=== PATIENT | male | born 1960 | race Caucasian/White ===

== ENCOUNTER 2018-03-23 11:55 | Day surgery (SDC) | payer OTHER, SELFPAY ==
--- NOTE | 2018-03-23 | PATH_ITS ---
[facility] Accession Number: [id number] . 01 Material submitted: . PART A: CECUM BIOPSY OF POLYP, 5MM PART B: 60CM SPLENIC FLEXURE POLYP, 1CM PART C: 30CM, SIGMOID POLYP, 2CM . 02 Diagnosis: A. Cecal Polyp, 5 mm, Biopsy: Tubular adenoma. . B. Splenic Flexure Polyp at 60 cm, 1 cm: Tubular adenoma. . C. Sigmoid Colon Polyp at 30 cm, 2 cm: Tubulovillous adenoma. Negative for high-grade dysplasia or malignancy. The polypectomy appears complete. MRV/03/26/2018 . 02 Electronically signed: . Aaron Webster MD, PhD, Pathologist NPI- [id number] . 01 Gross description: . Received three formalin-filled containers, each labeled with the patient's name: . A. In a container labeled cecum BX of polyp, the specimen consists of a 0.5 cm portion of tissue, entirely submitted in cassette A. B. In a container labeled 60 cm splenic flexure polyp, the specimen consists of a 0.4 cm portion of tissue, entirely submitted in cassette B. C. In a container labeled 30 cm sigmoid 3 cm polyp, designated 30 cm sigmoid polyp 2 cm, the specimen consists of a 1.2 x 1.2 x 2.0 cm portion of tissue, which is sectioned into four pieces and entirely submitted in cassettes C1 and C2. ([id number]) /FRR . 02 Pathologist provided ICD-10: D12.0, D12.3, D12.5 . 02 CPT . 156461, 141578, 635117 Specimen Comment: A duplicate report has been generated due to demographic updates. Performed at: [address] [place] [address] [address], [place], [place] [id number] MD Fahad Mckeon MD Phone: [phone] Performed at: 02 [facility] [address] [place] [id number] MD Ronaldo Santana MD Phone: [phone]
[2018-03-23 12:59] VITALS: BP 140/93; PULSE 99; RESP 16; TEMP 36.8; O2SAT 94; BMI 25.8
[2018-03-23] MEDS: SODIUM CHLORIDE 0.9% 1,000 ML 200 ML IV (13:05)
[2018-03-23] MEDS: MIDAZOLAM 5 MG/5 ML VIAL IV (15:03)
[2018-03-23] MEDS: fentaNYL 250 MCG/5 ML INJ IV (15:03)
[2018-03-23 15:15] VITALS: BP 115/77; PULSE 91; RESP 15; TEMP 37.1; O2SAT 94
[2018-03-23 15:20] VITALS: BP 113/85; PULSE 93; RESP 16; TEMP 37.1; O2SAT 94
[2018-03-23 15:25] VITALS: BP 130/97; PULSE 93; RESP 20; TEMP 36.9; O2SAT 95
--- NOTE | 2018-03-23 20:17 | OP_ITS ---
DATE OF SERVICE: 03/23/2018 PREOP DIAGNOSIS: Hematochezia. POSTOP DIAGNOSIS: Three colonic polyps, also internal hemorrhoids. OPERATION: Total colonoscopy to the cecum and excision of 3 polyps; one was a 1- cm polyp in the cecum, another was 5-mm polyp in the splenic flexure, and one was a 2-cm polyp at 30 cm in the sigmoid. These were all removed with the snare. The cecum and splenic flexure polyps were cold snare. The sigmoid was hot snare, and I applied a clip across the base of the pedicle. All 3 polyps were retrieved and sent for separate histopathology. SURGEON: Clive Rodriguez MD DESCRIPTION OF PROCEDURE: The patient was properly identified during surgical pause, given conscious sedation with Versed and fentanyl, 4 of versed and 200 of fentanyl throughout the total procedure. Flexible fiberoptic colonoscope inserted transanally to the cecum. In the cecum, there was a 1-cm polyp which I removed using cold snare and retrieved. The colon then was examined very carefully from the ascending colon across the transverse; it was normal. At the splenic flexure at 60 cm, there was a 5-mm polyp which I removed using the cold snare as well. This was also retrieved. In the sigmoid, there was a 2-cm pedunculated polyp which was irregular, with a thick pedicle stalk. I encircled that with the electric snare and used electrocautery to cauterize that stalk and remove that polyp completely and retrieved it for histopathology. Then I went back and examined the stalk. There was no bleeding but to ensure hemostasis I placed a clip across the base of the polyp. Numerous photographs of all of this were taken. The patient does have some internal hemorrhoids viewed and photographed on retroflexing the scope in the rectum. Procedure was well tolerated. DoryJeremy - Shiva/lynnette doc#: [id number]/job#: [id number] dd: 03/23/2018 15:17:00 dt: 03/23/2018 20:08:00 DICTATING MD/COPIES TO: Clive Rodriguez MD COPIES MNE: RAIN
--- NOTE | 2018-03-24 07:56 | HP_ITS ---
DATE OF SERVICE: March 23, 2018. HISTORY OF PRESENT ILLNESS: The patient is coming in for a screening colonoscopy. He does have a history of hematochezia intermittently over the past year. It is bright red blood, occasionally associated with clots. No abdominal pain. No rectal pain. The patient has a history of polycythemia vera, takes no medications for that. He takes no medications for any other conditions. PAST MEDICAL HISTORY: He has had a previous shoulder operation, arthroscopic. He has no other significant medical/surgical disorders. No hypertension, diabetes, or heart disease. He does have hypercholesterolemia. PHYSICAL EXAMINATION: VITAL SIGNS: Blood pressure 140/80, heart rate in the 80s. HEENT: Normal. NECK: No adenopathy. LUNGS: Clear. HEART: Regular rhythm. No murmur. ABDOMINAL: Soft, nontender. RECTAL: Will be done at the time of the colonoscopy. DIAGNOSIS: Hematochezia. Screening colonoscopy. Jeremy Connors - Shiva/carina doc#: [id number]/job#: [id number] dd: 03/23/2018 14:32:00 dt: 03/24/2018 07:20:00 DICTATING /COPIES TO: Clive Rodriguez MD COPIES MNE: RAIN
== END 2018-03-23 15:45 | disposition home or self-care (01) ==
PROVIDERS: Visit Provider Surgery
PROC: 0DJD8ZZ Inspection of Lower Intestinal Tract, Via Natural or Artificial Opening Endoscopic (ICD-10-PCS; CPT 45378; principal; 2018-03-23 13:45)
DX: Z12.11 Encounter for screening for malignant neoplasm of colon (principal); Z87.898 Personal history of other specified conditions; D45 Polycythemia vera; K64.8 Other hemorrhoids; D12.0 Benign neoplasm of cecum; D12.3 Benign neoplasm of transverse colon; D12.5 Benign neoplasm of sigmoid colon
CPT/HCPCS: 45385; J2250; J3010